=== PATIENT | male | born 1955 | race Caucasian/White ===

== ENCOUNTER 2018-10-23 20:13 | Emergency (ER) | payer OTHER ==
[~2018-10-23] VITALS: Wt 63.7 kg
[2018-10-23] MEDS ORDERED: SOD CHLORIDE 0.9% 1,000 ML IV STA (22:25)
[2018-10-23] MEDS ORDERED: FAMOTIDINE 20 MG INJ IV STA (22:25)
[2018-10-23] MEDS ORDERED: morphine 2 MG INJ IV STA (22:25)
[2018-10-23] MEDS ORDERED: ONDANSETRON 4 MG INJ IV STA (22:25)
[2018-10-24] MEDS ORDERED: MAG-19 PO (00:37)
[2018-10-24] MEDS ORDERED: RANI150T35 PO (00:37)
--- NOTE | 2018-10-24 00:37 | ERD ---
ER Documentation Chief Complaint Chief Complaint VOMITINF X'S 3 DAYS HPI This is a 63-year-old male who presents to the emergency room for evaluation of nausea and vomiting and abdominal cramping for the past 3 days. He denies any d iarrhea denies any fevers. The patient denies any blood in his vomit and states that he is passing gas and is having bowel movements. Patient denies any associated chest pain or shortness of breath and states that it is worse with spicy foods. He states that Mylanta does help with symptoms at times ROS All systems reviewed and are negative except as per history of present illness. Allergies Allergies: Coded Allergies: No Known Allergy (Unverified , 10/23/18) PMhx/Soc Medical and Surgical Hx: pt denies Medical Hx, pt denies Surgical Hx Hx Alcohol Use: Yes (socially) Hx Substance Use: Yes Hx Tobacco Use: Yes Smoking Status: Current every day smoker Physical Exam Vitals Vital Signs Date Temp Pulse Resp B/P (MAP) Pulse Ox O2 O2 Flow FiO2 Time Delivery Rate 10/23/18 98.1 70 18 182/87 98 20:15 (118) Physical Exam INITIAL VITAL SIGNS: Reviewed by me GENERAL: The patient is well developed and appropriate for usual state of health in no apparent distress HEENT: Pupils equal, round, and reactive to light. EOMI. There is no scleral icterus. NECK: C-spine is soft and supple, there is no meningismus. There is no cervical lymphadenopathy. LUNGS: Clear to auscultation bilaterally. There are no rales, wheezes or rhonchi. HEART: Regular rate and rhythm, no murmurs, clicks, rubs or gallops. ABDOMEN: Soft, non-tender, non-distended. There are bowel sounds in all four quadrants. No rebound or guarding. EXTREMITIES: There is no peripheral cyanosis or edema. No focal swelling or erythema. NEUROLOGICAL: The patient moves all four extremities with 5/5 strength. Cranial nerves II - XII are intact. Normal gait. Alert and oriented SKIN: There is no apparent rash or petechiae. HEME/LYMPHATIC: There is no evidence of excessive bruising or lymphedema. PSYCHIATRIC: The patient does not appear anxious or depressed. Result Diagram: 10/23/18 2252 10/23/189 Results 24 hrs Laboratory Tests Test 10/23/18 22:55 White Blood Count 5.9 10^3/ul Red Blood Count 4.89 10^6/ul Hemoglobin 14.4 g/dl Hematocrit 42.4 % Mean Corpuscular Volume 86.7 fl Mean Corpuscular Hemoglobin 29.4 pg Mean Corpuscular Hemoglobin Concent 34.0 g/dl Red Cell Distribution Width 12.4 % Platelet Count 175 10^3/UL Mean Platelet Volume 10.6 fl Immature Granulocytes % 0.200 % Neutrophils % 72.9 % Lymphocytes % 16.3 % Monocytes % 10.3 % Eosinophils % 0.0 % Basophils % 0.3 % Nucleated Red Blood Cells % 0.0 /100WBC Immature Granulocytes # 0.010 10^3/ul Neutrophils # 4.3 10^3/ul Lymphocytes # 1.0 10^3/ul Monocytes # 0.6 10^3/ul Eosinophils # 0.0 10^3/ul Basophils # 0.0 10^3/ul Nucleated Red Blood Cells # 0.0 10^3/ul Sodium Level 134 mmol/L Potassium Level 3.9 mmol/L Chloride Level 95 mmol/L Carbon Dioxide Level 26 mmol/L Anion Gap 13 Blood Urea Nitrogen 16 mg/dl Creatinine 0.86 mg/dl Est Glomerular Filtrat Rate mL/min > 60 mL/min Glucose Level 108 mg/dl Calcium Level 9.0 mg/dl Total Bilirubin 0.0 mg/dl Direct Bilirubin 0.00 mg/dl Indirect Bilirubin 0.0 mg/dl Aspartate Amino Transf (AST/SGOT) 36 IU/L Alanine Aminotransferase (ALT/SGPT) 32 IU/L Alkaline Phosphatase 72 IU/L Troponin I < 0.012 ng/ml Total Protein 6.7 g/dl Albumin 3.7 g/dl Globulin 3.00 g/dl Albumin/Globulin Ratio 1.23 Lipase 128 U/L Current Medications Medications Dose Sig/Aisha Start Time Status Last (Trade) Ordered Route PRN Stop Time Admin Dose Reason Admin Sodium 1,000 ml @ Q1H STAT 10/23/18 DC 10/23/18 Chloride 1,000 mls/hr IV 22:25 23:18 10/23/18 23:24 Morphine 2 mg ONCE STAT 10/23/18 DC 10/23/18 Sulfate IV 22:25 23:19 (morphine) 10/23/18 22:27 Ondansetron 4 mg ONCE STAT 10/23/18 DC 10/23/18 HCl (Zofran IV 22:25 23:18 Inj) 10/23/18 22:27 Famotidine 20 mg ONCE STAT 10/23/18 DC 10/23/18 (Pepcid Iv) IV 22:25 23:18 10/23/18 22:27 Procedures/MDM CT abdomen pelvis without: IMPRESSION: 1. Bilateral low attenuation renal masses, most likely cysts. 2. 8 mm low attenuation focus lateral segment 8 of the liver. This is too small to characterize as cystic or solid. 3. No renal, ureter, UVJ and urinary bladder calcified stone. No evidence of diverticulosis or diverticulitis. 4. Mildly dilated segment of jejunum in the lower left abdomen. This could be due to peristalsis or a mild localized ileus. 4. Chronic L5-S1 spondylosis. This 63-year-old male presents the ER for evaluation of abdominal pain, cramping, nausea and vomiting. On my exam the patient was afebrile and hemody namically stable. His abdominal exam is nonspecific however he had no distention. The patient underwent lab work which is normal, and had a CT of the abdomen pelvis which shows no signs of obstruction. The patient does have a possible ileus however this patient is passing gas and is moving his bowels without difficulty. The patient is likely suffering from gastritis and GERD and will be discharged home with a prescription for Zantac and Mylanta. Differential diagnoses entertained was broad with potential high acuity. Patient has been evaluated for appendicitis, cholecystitis, and other high risk medical and surgical causes of abdominal pain. Ultimately the patient's evaluation is nondiagnostic. Based on the patient's lack of risk factors, as well as the patient's clinical, laboratory, and imaging data, the patient appears to be low risk for these high risk causes of abdominal pain. Departure Diagnosis: Primary Impression: Nausea & vomiting Additional Impression: GERD (gastroesophageal reflux disease) Condition: Stable YODIT PAN DO Oct 24, 2018 00:37
[2018-10-24] MEDS ORDERED: AL HYDROX/MG HYDROX/SIMETH 30 ML CUP PO ONE (01:00)
[2018-10-24 01:18] VITALS: BP 150/70; PULSE 65; RESP 16
== END 2018-10-24 01:18 | disposition home or self-care (01) ==
LOC: E/R 20:13
DX: K21.9 Gastro-esophageal reflux disease without esophagitis (principal); F17.210 Nicotine dependence, cigarettes, uncomplicated
CPT/HCPCS: 36415; 74176; 80053; 83690; 84484; 85025; 96361; 96374; 96375; 99285; J2270; J2405; J7030